=== PATIENT | male | born 1950 | race Caucasian/White ===

== ENCOUNTER 2019-04-04 01:34 | Observation (INO) | payer MEDICARE ==
[2019-04-04] MEDS ORDERED: ONDANSETRON 4 MG/2 ML VIAL ONE (01:55)
[2019-04-04] MEDS ORDERED: MORPHINE 4 MG/ML SYR ONE (01:56)
[2019-04-04 02:22] LABS: Protime INR 1.7
[2019-04-04 02:29] LABS: Absolute Lymphocytes (CBC) 1.5 K/uL (0.7-4.9); Basophils % 0.9 % (0-1.3); Hematocrit 37.9 % (39.6-49.0); Lymphocytes % 28.9 % (15.3-44.8); MPV 8.7 fL (7.6-11.3); RBC Red Blood Cell Count 4.06 M/uL (4.33-5.43)
[2019-04-04 02:35] LABS: Bicarbonate 28 mmol/L (21-32); Glucose Level 133 mg/dL (74-106); Potassium 4.3 mmol/L (3.5-5.1); Sodium Level 139 mmol/L (136-145)
[2019-04-04 02:36] LABS: ALT/SGPT 23 U/L (12-78); AST/SGOT 14 U/L (15-37); Albumin 3.9 g/dL (3.4-5.0); Alkaline Phosphatase 40 U/L (45-117); BUN Blood Urea Nitrogen 34 mg/dL (7-18); Bilirubin Direct 0.3 mg/dL (0-0.2); Bilirubin Total 0.9 mg/dL (0.2-1.0); Magnesium 1.7 mg/dL (1.8-2.4); NT PRO-BNP 72 pg/mL (<125); Protein, Total 7.2 g/dL (6.4-8.2); Troponin (Emerg Dept Use Only) < 0.02 ng/mL (0.0-0.045)
--- NOTE | 2019-04-04 03:22 | EDPHYS ---
Physician Documentation [facility] Name: Erik Colbert Jr Age: 69 yrs Sex: Male : 1950 Arrival Date: 04/04/2019 Time: 01:35 Bed 6 Private MD: ED Physician Paxton Romo HPI: 04/04 02:06 This 69 yrs old Male presents to ER via Ambulatory with complaints of pm1 Breathing Difficulty, Back Pain. 02:06 The patient or guardian reports chest pain that is located primarily in the anterior pm1 aspect of left upper chest. Onset: 2 day(s) ago. 02:06 The pain radiates to left neck, left back. Associated signs and symptoms: Pertinent pm1 positives: shortness of breath, Pertinent negatives: abdominal pain, cough, diaphoresis, dizziness, headache, nausea, vomiting. The chest pain is described as sharp. Duration: The patient or guardian reports a single episode, that is still ongoing. Modifying factors: The symptoms are alleviated by nothing. the symptoms are aggravated by nothing. Severity of pain: in the emergency department the pain is actually worse. Patient reports onset of left scapular pain two days ago and believed it was related to muscle sprain from lifting heavy object on to shelf. Today reports left sided chest pain with radiation to left side of neck and shortness of breath. Historical: - Allergies: 02:10 No Known Allergies; ea - Home Meds: 02:10 metformin 1,000 mg oral tab 1 tab 2 times per day [Active]; Xarelto 20 mg oral tab 1 ea tab once daily for Pulmonary Thromboembolism [Active]; tamsulosin 0.4 mg oral cp24 1 cap once daily [Active]; atorvastatin 20 mg oral tab 1 tab once daily [Active]; atorvastatin 20 mg oral tab 1 tab once daily [Active]; finasteride 5 mg oral tab 1 tab once daily [Active]; losartan 25 mg oral tab .5 tab once daily [Active]; - PMHx: 02:10 Diabetes - NIDDM; Kidney stones; PE; ea - Immunization history:: Adult Immunizations up to date. - Social history:: Smoking status: Patient/guardian denies using tobacco. - Ebola Screening: : No symptoms or risks identified at this time. ROS: 02:16 Constitutional: Negative for fever, chills, and weight loss, Eyes: Negative for injury, pm1 pain, redness, and discharge, ENT: Negative for injury, pain, and discharge, Neck: Negative for injury, pain, and swelling. 02:16 Abdomen/GI: Negative for abdominal pain, nausea, vomiting, diarrhea, and constipation. 02:16 MS/Extremity: Negative for injury and deformity, Skin: Negative for injury, rash, and discoloration, Neuro: Negative for headache, weakness, numbness, tingling, and seizure. 02:16 Cardiovascular: Positive for chest pain, Negative for edema, palpitations. 02:16 Respiratory: Positive for shortness of breath, Negative for cough, wheezing. 02:16 Back: Positive for of the left scapular area, pain. Exam: 02:16 Constitutional: This is a well developed, well nourished patient who is awake, alert, pm1 and in no acute distress. Head/Face: Normocephalic, atraumatic. Neck: Trachea midline, no thyromegaly or masses palpated, and no cervical lymphadenopathy. Supple, full range of motion without nuchal rigidity, or vertebral point tenderness. No Meningismus. Chest/axilla: Normal chest wall appearance and motion. Nontender with no deformity. No lesions are appreciated. Cardiovascular: Regular rate and rhythm with a normal S1 and S2. No gallops, murmurs, or rubs. No pulse deficits. Respiratory: Lungs have equal breath sounds bilaterally, clear to auscultation and percussion. No rales, rhonchi or wheezes noted. No increased work of breathing, no retractions or nasal flaring. Abdomen/GI: Soft, non-tender, with normal bowel sounds. No distension or tympany. No guarding or rebound. No evidence of tenderness throughout. Back: No spinal tenderness. No costovertebral tenderness. Full range of motion. Skin: Warm, dry with normal turgor. Normal color with no rashes, no lesions, and no evidence of cellulitis. MS/ Extremity: Pulses equal, no cyanosis. Neurovascular intact. Full, normal range of motion. 02:16 Neuro: Orientation: is normal, Motor: is normal, moves all fours. Vital Signs: 01:48 BP 143 / 76; Pulse 73; Resp 18; Temp 98.3; Pulse Ox 99% ; Weight 108.86 kg; Height 6 ea ft. 1 in. (185.42 cm); Pain 6/10; 02:55 BP 140 / 69; Pulse 69; Resp 18; Pulse Ox 100% ; ea 04:00 BP 126 / 70; Pulse 70; Resp 18; Temp 97.8; Pulse Ox 100% ; ea 01:48 Body Mass Index 31.66 (108.86 kg, 185.42 cm) ea MDM: 01:42 Patient medically screened. pm1 02:37 Data reviewed: vital signs. Data interpreted: Pulse oximetry: on room air is 99 %. pm1 Interpretation: normal. 03:20 Differential diagnosis: Anxiety Reaction Pneumothorax Pulmonary Embolism Unstable ma2 Angina. Counseling: I had a detailed discussion with the patient and/or guardian regarding: the historical points, exam findings, and any diagnostic results supporting the discharge/admit diagnosis, the presence of at least one elevated blood pressure reading (>120/80) during this emergency department visit, the need for further work-up and treatment in the hospital. Response to treatment: the patient's symptoms have mildly improved after treatment. ED course: patient is already on xarelto, for pe . 04/04 01:48 Order name: Basic Metabolic Panel; Complete Time: 02:37 pm1 04/04 01:48 Order name: CBC with Diff; Complete Time: 03:00 pm1 04/04 01:48 Order name: LFT's; Complete Time: 02:37 pm1 04/04 01:48 Order name: Magnesium; Complete Time: 02:37 pm1 04/04 01:48 Order name: NT PRO-BNP; Complete Time: 02:37 pm1 04/04 01:48 Order name: PT-INR; Complete Time: 02:31 pm1 04/04 01:48 Order name: Troponin (emerg Dept Use Only); Complete Time: 02:37 pm1 04/04 03:30 Order name: Basic Metabolic Panel EDMS 04/04 03:30 Order name: Basic Metabolic Panel EDMS 04/04 03:30 Order name: CBC with Automated Diff EDMS 04/04 03:30 Order name: CBC with Automated Diff EDMS 04/04 03:30 Order name: Troponin I EDMS 04/04 03:30 Order name: Troponin I EDMS 04/04 03:30 Order name: Troponin I EDMS 04/04 01:48 Order name: XRAY Chest (1 view) pm1 04/04 01:48 Order name: EKG; Complete Time: 01:51 pm04/04 01:48 Order name: Cardiac monitoring; Complete Time: 02:11 pm04/04 01:48 Order name: EKG - Nurse/Tech; Complete Time: 02:11 pm04/04 01:48 Order name: IV Saline Lock; Complete Time: 02:11 pm1 04/04 01:48 Order name: Labs collected and sent; Complete Time: 02:11 pm04/04 01:48 Order name: O2 Per Protocol; Complete Time: 02:11 pm04/04 01:48 Order name: O2 Sat Monitoring; Complete Time: 02:11 pm1 04/04 03:30 Order name: Consistent Carb (ADA) [address] [facility] EDMS 04/04 03:30 Order name: EKG Electrocardiogram EDMS 04/04 03:30 Order name: EKG Electrocardiogram EDMS 04/04 03:30 Order name: EKG Electrocardiogram EDMS 04/04 03:30 Order name: EKG Electrocardiogram EDMS Administered Medications: 03:13 Drug: morphine 4 mg Route: IVP; Site: right antecubital; ea 03:30 Follow up: Response: No adverse reaction ea 03:14 Drug: Zofran 4 mg Route: IVP; Site: right antecubital; ea 03:30 Follow up: Response: No adverse reaction ea 03:55 Drug: Aspirin Chewable Tablet 324 mg Route: PO; ea 04:27 Follow up: Response: No adverse reaction ea Disposition: 03:20 Co-signature as Attending Physician, Paxton Romo MD. ma2 Disposition: 04/04/19 03:22 Hospitalization ordered by Steve Singletary for Observation. Preliminary diagnosis is Chest pain, unspecified. - Bed requested for Telemetry/MedSurg (observation). - Status is Observation. ea - Condition is Stable. - Problem is new. - Symptoms are unchanged. UTI on Admission? No Signatures: Dispatcher [employer] EDKatheryn Liu, RN RN cg Todd Dan, CLINIC OFFICE ASSISTANT CLINIC OFFICE ASSISTANT pm1 Zayda Connors RN RN ea Alzahri, Mohammad, MD MD ma2 Corrections: (The following items were deleted from the chart) 04:14 03:22 Hospitalization Ordered by Steve Singletary MD for Observation. Preliminary diagnosis cg is Chest pain, unspecified. Bed requested for Telemetry/MedSurg (observation). Status is Observation. Condition is Stable. Problem is new. Symptoms are unchanged. UTI on Admission? No. ma2 04:38 04:14 04/04/2019 03:22 Hospitalization Ordered by Steve Singletary MD for Observation. ea Preliminary diagnosis is Chest pain, unspecified. Bed requested for Telemetry/MedSurg (observation). Status is Observation. Condition is Stable. Problem is new. Symptoms are unchanged. UTI on Admission? No. cg
--- NOTE | 2019-04-04 03:22 | ER ---
Nurse's Notes [facility] Name: Erik Coblert Jr Age: 69 yrs Sex: Male : 1950 Arrival Date: 04/04/2019 Time: 01:35 Bed 6 Private MD: Diagnosis: Chest pain, unspecified Presentation: 04/04 01:48 Presenting complaint: Patient states: Reports left shoulder pain that radiates to left ea neck that started 2 days ago. Pt rates pain 6/10 reports SOB. Transition of care: patient was not received from another setting of care. Onset of symptoms was April 04, 2019. Risk Assessment: Do you want to hurt yourself or someone else? Patient reports no desire to harm self or others. Initial Sepsis Screen: Does the patient meet any 2 criteria? No. Patient's initial sepsis screen is negative. Does the patient have a suspected source of infection? No. Patient's initial sepsis screen is negative. Care prior to arrival: None. 01:48 Method Of Arrival: Ambulatory ea 01:48 Acuity: ABIMAEL 3 ea Triage Assessment: 02:06 General: Appears uncomfortable, Behavior is cooperative, appropriate for age. Pain: ea Complains of pain in left scapular area Pain radiates to left side of neck. Neuro: Level of Consciousness is awake, alert, obeys commands, Oriented to person, place, time, situation. Cardiovascular: Patient's skin is warm and dry. Respiratory: Reports shortness of breath Onset: The symptoms/episode began/occurred yesterday, the patient has mild shortness of breath. Derm: Skin is pink, warm \\T\\ dry. Musculoskeletal: Circulation, motion, and sensation intact. Historical: - Allergies: 02:10 No Known Allergies; ea - Home Meds: 02:10 metformin 1,000 mg oral tab 1 tab 2 times per day [Active]; Xarelto 20 mg oral tab 1 ea tab once daily for Pulmonary Thromboembolism [Active]; tamsulosin 0.4 mg oral cp24 1 cap once daily [Active]; atorvastatin 20 mg oral tab 1 tab once daily [Active]; atorvastatin 20 mg oral tab 1 tab once daily [Active]; finasteride 5 mg oral tab 1 tab once daily [Active]; losartan 25 mg oral tab .5 tab once daily [Active]; - PMHx: 02:10 Diabetes - NIDDM; Kidney stones; PE; ea - Immunization history:: Adult Immunizations up to date. - Social history:: Smoking status: Patient/guardian denies using tobacco. - Ebola Screening: : No symptoms or risks identified at this time. Screenin:04 Abuse screen: Denies threats or abuse. Nutritional screening: No deficits noted. ea Tuberculosis screening: No symptoms or risk factors identified. Fall Risk None identified. Assessment: 02:07 Reassessment: see triage assessment. Respiratory: Airway is patent Respiratory effort ea is even, unlabored, Breath sounds are clear. 02:10 Reassessment: Patient and/or family updated on plan of care and expected duration. Pain ea level reassessed. Patient is alert, oriented x 3, equal unlabored respirations, skin warm/dry/pink. Pt offered pain medication, pt refused pain medication at this time. States " it's not hurting that bad right now". 03:00 Reassessment: Patient and/or family updated on plan of care and expected duration. Pain ea level reassessed. Patient is alert, oriented x 3, equal unlabored respirations, skin warm/dry/pink. 04:34 Reassessment: Patient and/or family updated on plan of care and expected duration. Pain ea level reassessed. Patient is alert, oriented x 3, equal unlabored respirations, skin warm/dry/pink. Report called to Marcela HESS. Pt admitted to fourth floor, left ED via wheelchair, per tech, pt tolerating well. No s/s of pain or discomfort noted at this time. Vital Signs: 01:48 BP 143 / 76; Pulse 73; Resp 18; Temp 98.3; Pulse Ox 99% ; Weight 108.86 kg; Height 6 ea ft. 1 in. (185.42 cm); Pain 6/10; 02:55 BP 140 / 69; Pulse 69; Resp 18; Pulse Ox 100% ; ea 04:00 BP 126 / 70; Pulse 70; Resp 18; Temp 97.8; Pulse Ox 100% ; ea 01:48 Body Mass Index 31.66 (108.86 kg, 185.42 cm) ea ED Course: 01:35 Patient arrived in ED. jg7 01:39 Todd Dan NP is PHCP. pm1 01:39 Paxton Romo MD is Attending Physician. pm1 01:48 Patient has correct armband on for positive identification. Placed in gown. Bed in low ea position. Call light in reach. Side rails up X 1. 01:48 Arm band placed on right wrist. Patient placed in an exam room, on a stretcher, on ea conveyor monitor, on pulse oximetry. 01:59 Zayda Connors RN is Primary Nurse. ea 02:03 Inserted saline lock: 20 gauge in right antecubital area, using aseptic technique. oe Blood collected. 02:04 Triage completed. ea 02:06 XRAY Chest (1 view) In Process Unspecified. EDMS 03:21 Steve Singletary MD is Hospitalizing Provider. ma2 04:29 Patient admitted, IV remains in place. ea 04:34 No provider procedures requiring assistance completed. ea Administered Medications: 03:13 Drug: morphine 4 mg Route: IVP; Site: right antecubital; ea 03:30 Follow up: Response: No adverse reaction ea 03:14 Drug: Zofran 4 mg Route: IVP; Site: right antecubital; ea 03:30 Follow up: Response: No adverse reaction ea 03:55 Drug: Aspirin Chewable Tablet 324 mg Route: PO; ea 04:27 Follow up: Response: No adverse reaction ea Outcome: 03:22 Decision to Hospitalize by Provider. ma2 04:00 Instructed on the need for admit, Demonstrated understanding of instructions. ea 04:29 Admitted to Med/surg accompanied by tech, via wheelchair, room 423, with chart, Report ea called to Marcela HESS 04:29 Condition: stable 04:38 Patient left the ED. ea Signatures: Dispatcher [employer] EDMA Todd Dan, [employer] SPECIAL EDUCATION SUPERVISOR pm1 Fab Torres Elena, DESHAWN RN Paxton Grady MD MD ma2 Felicita Galvan jg7 Corrections: (The following items were deleted from the chart) 03:02 03:01 BP 140 / 69; Pulse 69bpm; Resp 18bpm; Pulse Ox 100%; ea ea
[2019-04-04] MEDS ORDERED: ASPIRIN 81 MG CHEWABLE TABLET ONE (03:49)
[2019-04-04 04:47] VITALS: O2SAT 100
[2019-04-04 06:18] VITALS: BMI 31.6
[2019-04-04] MEDS: MORPHINE 4 MG/ML SYR IV PRN ×2 (07:24→13:07)
[2019-04-04 07:45] LABS: Urine Appearance CLEAR; Urine Bilirubin NEGATIVE (NEG); Urine Blood NEGATIVE (NEG); Urine Color YELLOW; Urine Glucose NEGATIVE (NEG); Urine Protein NEGATIVE (NEG); Urine Specific Gravity 1.015 (1.005-1.030); Urine Urobilinogen 0.2 mg/dL (0.2-1.0); Urine pH 5.5 (5.0-7.0)
[2019-04-04 07:56] LABS: Urine Bacteria <20 /HPF (NONE SEEN); Urine Culture Reflex Order NOT NEEDED; Urine RBC <5 /HPF (NONE SEEN)
[2019-04-04] MEDS ORDERED: INFLUENZA VACCINE (for 3y+) 0.5 ML DOSE IMVAC ONE (08:00)
--- NOTE | 2019-04-04 08:07 | RAD REPORT ---
EXAM DESCRIPTION: Dariana Single View04/04/2019 2:07 am CLINICAL HISTORY: Chest pain COMPARISON: 2012 FINDINGS: The lungs appear clear of acute infiltrate. The heart is normal size IMPRESSION: No acute abnormalities displayed
[2019-04-04] MEDS ORDERED: FINASTERIDE 5 MG TAB PO SCH (09:00)
[2019-04-04] MEDS ORDERED: METFORMIN ER 500 MG TAB PO SCH (09:00)
[2019-04-04] MEDS ORDERED: RIVAROXABAN 20 MG TABLET PO SCH (09:00)
[2019-04-04] MEDS ORDERED: ASPIRIN EC 81 MG TAB PO SCH (09:00)
[2019-04-04] MEDS ORDERED: LOSARTAN POTASSIUM PO SCH (09:00)
[2019-04-04] MEDS ORDERED: TAMSULOSIN 0.4 MG SR CAP PO SCH (09:00)
[2019-04-04] MEDS ORDERED: ATORVASTATIN 20 MG TAB PO SCH (09:00)
--- NOTE | 2019-04-04 09:05 | RAD REPORT ---
EXAM DESCRIPTION: RAD - C Spine W Obliques - 04/04/2019 8:50 am CLINICAL HISTORY: Neck pain FINDINGS: No fracture. Mild anterior subluxation C5 on C6 The oblique views demonstrate mild bony encroachment upon the right neural foramina C4-5 and left alina ral foramina C3-4 and C5-6 and C6-7 Bones appear osteoporotic
--- NOTE | 2019-04-04 09:12 | RAD REPORT ---
EXAM DESCRIPTION: RAD - Thoracic Spine Ap/Lat - 04/04/2019 8:52 am CLINICAL HISTORY: Back pain FINDINGS: No fracture or dislocation Mild kyphosis Osteoporosis Moderate spondylosis involves the thoracic spine mainly consisting of anterolateral osteophytes. Diff use idiopathic skeletal hyperostosis is present.
--- NOTE | 2019-04-04 10:23 | EKG ---
Test Date: 2019-04-04 Test Time: 01:58:21 Position Classification Manager: HANNAH MEASUREMENT RESULTS: Intervals: Rate: 76 ID: [id number] QRSD: 150 QT: 400 QTc: 450 [place]: P: 5 ID: [id number] QRS: -47 T: 26 INTERPRETIVE STATEMENTS: Normal sinus rhythm Right bundle branch block Left axis Abnormal ECG Compared to ECG 07/03/2016 17:01:47 Sinus tachycardia no longer present Myocardial infarct finding no longer present Electronically Signed On 04-04-19 10:23:10 AIR HOSE COUPLER by Jose Mejia
--- NOTE | 2019-04-04 10:23 | EKG ---
Test Date: 2019-04-04 Test Time: 06:44:31 Theatrical Rigger: LUIS A MEASUREMENT RESULTS: Intervals: Rate: 65 MN: 230 QRSD: 154 QT: 418 QTc: 434 [place]: P: 61 MN: 230 QRS: -25 T: 34 INTERPRETIVE STATEMENTS: Sinus rhythm with 1st degree AV block Right bundle branch block Abnormal ECG Compared to ECG 04/04/2019 01:58:21 First degree AV block now present Electronically Signed On 04-04-19 10:22:41 AQUACULTURE DIRECTOR by Jose Mejia
--- NOTE | 2019-04-04 13:58 | CON ---
Chief Complaint: Left scapular pain. 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 While he was doing that he was lifting a 40 pound box, noted the onset of pain. Later, katherin teixeira felt that at the back of his neck, so he came to the hospital. I am asked to see if this is perhap s a sign of CAD. The patient is very active. [place]. He does not brannon ve any chest pain with that. He does not have any chest pain now. He never had myocardial infarctio n or stroke. Remotely, he has had a pulmonary embolus and remains on anticoagulation chronically. Katherin teixeira also has dyslipidemia, diabetes, hypertension and prostate hypertrophy. He is a nonsmoker. Alcohol use minimal. No illegal drugs. Physical Examination: General: 6 feet 1, 240 pounds. Body mass index 31. HEENT: Unremarkable. Lungs: Clear. Heart: Exam is within normal limits. No carotid bruit. Extremities: Trace edema. Distal pulses palpable. EKG normal. Troponins normal. I think the patient did have a stress test done. I would actually re commend he be discharged and do a stress test as an outpatient. I do not think he needs hospitalizat ion anymore. All his enzymes are normal. EKGs normal. The pain he has is not very reminiscent of u nstable heart disease at all. I would recommend discharge. ZACHARY/HARINDER Voice ID: [id number] Report ID: [id number]
[2019-04-04 16:11] VITALS: BP 119/61; TEMP 98.1
--- NOTE | 2019-04-05 01:59 | SS ---
Date of Discharge: 04/04/2019 Chief Complaint: Chest pain. History Of Present Illness: This is a 69-year-old pleasant male patient who was doing fine until all of a sudden last night he started to have some pain in the left scapular region. It radiated to his left posterolateral neck area and he came into emergency room with these complaints. After he was e valuated, he was admitted to the hospital. When I saw him this morning, he was pain-free. Denies an y rash. No fever or chills. No fall or injury. No nausea, vomiting. No shortness of breath or gail phoresis. Allergies: NO KNOWN ALLERGIES. Medications: Medication list reviewed. Review of Systems: Cardiovascular: As mentioned above. All other systems reviewed are negative. Social History: Negative for smoking and alcohol use. Family History: Significant for COPD. Past Surgical History: Negative. Past Medical History: Erectile dysfunction, elevated PSA, vitamin B12 deficiency, anemia, type 2 gail betes mellitus, hyperlipidemia, hypertension, pulmonary embolism for which he is on chronic anticoagu lation therapy. Physical Examination: Vital Signs: Temperature 97.4, pulse 61, respiratory rate 16, blood pressure 126/67, oxygen saturati on was 96%, height 6 feet 1 inch, weight 240 pounds. General: Awake, alert, oriented, not in distress. HEENT: Head atraumatic, normocephalic. Conjunctivae nonerythematous. Sclerae white. Mouth, no thr ush or edema noted. Ears/Nose, no mass, lesion, discharge noted. Neck: Supple. No JVD, lymph nodes, bruit, thyromegaly noted. Lungs: Bilateral good equal air entry. Clear to auscultation. No rhonchi. No rales. Heart: Normal heart sounds, no murmur or gallop. Abdomen: Soft, bowel sounds normal. No guarding, rigidity, tenderness, mass, hepatosplenomegaly, dis tention, or bruit noted. Extremities: No leg edema. No calf tenderness. Skin: No rash, ulcer, cellulitis. Lymphatics: No lymph node enlargement in neck, supraclavicular, infraclavicular region. Neuro: No focal neurological deficit. Chest: Unremarkable. External Genitalia: Deferred. Rectal: Deferred. Laboratory Data: White count 5, hemoglobin 13.2, platelets 132. INR 1.70. Sodium 139, potassium 4. 3, chloride 104, bicarb 28, BUN 34, creatinine 1.50, glucose 133, magnesium 1.7. Liver function test s unremarkable. Troponin less than 0.02 x3. Urinalysis, negative. Chest x-ray, no acute cardiopulm onary changes. EKG, no acute ST-T changes. Hospital Course: After I saw patient, Cardiology consultation was requested. The patient's pain was atypical in nature. His home medications were continued. This afternoon, nurse contacted and infor med me that the patient's had noted some rash in the anterior chest wall area, which could be du e to shingles and senior php web developer has released him to go home. Medically, he is stable for discharge. So, what I did is, I asked the patient to come over to my office upon discharge from the hospital as this morning when I saw him, he did not have any rash over anterior, posterior, or lateral chest wall area at all. After his discharge from the hospital he came over to office with his and I exami gladys him and confirmed that he has a vesicular rash over left anterior chest wall. There is no rash o louise the scapular region, but his skin has changed color and it is slightly pinkish in color, but once again, there is no rash in the scapular region. I believe that his pain that he presented with is l ikely due to underlying herpes zoster and details were discussed with him. We will start him on anti viral medication famciclovir 500 mg 2 times a day in view of his chronic kidney disease stage 3. Start him on gabapen tin and prednisone 20 mg daily for 5 days. I will see him at office in 1 week. Details and plan of treatment discussed with the patient and the patient's . Final Diagnoses: 1.Chest pain, atypical. 2.Herpes zoster. 3.Chronic kidney disease, stage 3. 4.Type 2 diabetes mellitus. 5.History of pulmonary embolism. 6.Chronic anticoagulation therapy. 7.Mixed hyperlipidemia. 8.Hypertension. ENOC/MODL Voice ID: [id number] Report ID: [id number]
[2019-04-05] MEDS ORDERED: LOSARTAN POTASSIUM 50 MG TABLET PO SCH (09:00)
== END 2019-04-04 16:40 | disposition home or self-care (01) ==
LOC: ER 01:34 → ERHOLD 03:37 → 4TH 04:29
PROVIDERS: ADMIT Internal Medicine; ATTEND Internal Medicine
DX: R07.89 Other chest pain (principal); B02.9 Zoster without complications; I12.9 Hypertensive chronic kidney disease with stage 1 through stage 4 chronic kidney disease, or unspecified chronic kidney disease; E11.22 Type 2 diabetes mellitus with diabetic chronic kidney disease; N18.3 Chronic kidney disease, stage 3 (moderate); E78.2 Mixed hyperlipidemia; N52.9 Male erectile dysfunction, unspecified; Z79.01 Long term (current) use of anticoagulants; Z86.711 Personal history of pulmonary embolism
CPT/HCPCS: 93005 ×2; 85025; 81001; 80048; 36415; 83735; 85610; 80076; 84484 ×3; 83880; 71045; 72050; 72070; 96375; 96374; 99285; J2405; G0378 ×2; Q2035

== ENCOUNTER 2021-09-25 10:32 | Inpatient (IN) | payer OTHER ==
[2021-09-25 12:00] LABS: Urine Blood Trace-lysed (Negative); Urine Glucose Negative (Negative); Urine Protein 1+ (Negative); Urine pH 5.5 (5.0-7.0)
[2021-09-25 12:02] LABS: Absolute Lymphocytes (CBC) 1.5 K/uL (0.7-4.9); Hematocrit 33.6 % (39.6-49.0); Lymphocytes % 19.7 % (15.3-44.8); MCV 92.3 fL (80-100); MPV 7.1 fL (7.6-11.3); RBC Red Blood Cell Count 3.64 M/uL (4.33-5.43)
[2021-09-25 12:10] LABS: Protime INR 2.06
[2021-09-25 12:23] LABS: Albumin 3.2 g/dL (3.4-5.0); Bilirubin Total 1.9 mg/dL (0.2-1.0); Protein, Total 7.3 g/dL (6.4-8.2)
[2021-09-25 12:28] LABS: Urine Bacteria 20-50 /HPF (NONE SEEN); Urine RBC <5 /HPF (NONE SEEN)
[2021-09-25 12:29] LABS: Urine Mucus 1+ /HPF (NONE SEEN)
--- NOTE | 2021-09-25 12:40 | RAD REPORT ---
EXAM DESCRIPTION: CT - Stone Protocol - 09/25/2021 12:15 pm CLINICAL HISTORY: Flank pain. HX of stone COMPARISON: Stone Protocol dated 12/23/2018 TECHNIQUE: Axial images were obtained without oral or IV contrast. Lack of contrast limits solid org an and vascular assessment. The geyul-la-ndns spans the entirety of the system partially obscuring uppermost abdomen and lung bases. Coronal reformatted images were obtained and reviewed. All CT scans are performed using dose optimization technique as appropriate and may include automated exposure control or mA/KV adjustment according to patient size. FINDINGS: The lower lung theodore are clear. Imaged portions of the liver and spleen show no suspicious findings on non-contrast imaging. There is slight fat stranding surrounding the pancreatic head.Adrenal glands are normal. No pathologic lympha denopathy in the abdomen or pelvis. No urinary tract stones or obstructive uropathy. No bowel obstruction, free air, free fluid or abscess. Appendix is upper limit of normal measuring 8 mm.Small fat containing umbilical hernia. Small bilateral fat containing inguinal hernias. Hardware is in place in the lumbar spine with postsurgical changes. IMPRESSION: No urinary tract stones or obstructive uropathy. Trace fat stranding surrounding the pancreatic head region, suggest correlation with amylase/lipase t o evaluate for pancreatitis. Fat containing umbilical.
[2021-09-25] MEDS ORDERED: CEFTRIAXONE 1000 MG/VIAL ONE (12:44)
[2021-09-25] MEDS ORDERED: NA CHLORIDE 0.9% 1,000 ML ONE (12:57)
[2021-09-25] MEDS ORDERED: ACETAMINOPHEN 500 MG TAB ONE (12:57)
--- NOTE | 2021-09-25 13:28 | RAD REPORT ---
EXAM DESCRIPTION: RAD - Chest Single View - 09/25/2021 1:20 pm CLINICAL HISTORY: SOB Chest pain. COMPARISON: Chest Single View dated 04/04/2019; Abdomen 1 View (KUB) dated 09/10/2016; Abdomen 1 View (KUB) dated 08/05/2016; CHEST SINGLE VIEW dated 03/10/2013 FINDINGS: Portable technique limits examination quality. Interstitial prominence is seen which is nonspecific and may represent interstitial pneumonia or inte rstitial pulmonary edema. The heart is normal in size. No displaced fractures.
--- NOTE | 2021-09-25 15:00 | RAD REPORT ---
EXAM DESCRIPTION: CT - Chest For Pe Angio - 09/25/2021 2:46 pm CLINICAL HISTORY: Chest pain. hx of PE COMPARISON: CTANGIO CHEST FOR PE dated 03/10/2013 TECHNIQUE: CT angiogram of the pulmonary arteries was performed with MIP. All CT scans are performed using dose optimization technique as appropriate and may include automated exposure control or mA/KV adjustment according to patient size. FINDINGS: No evidence of pulmonary thromboembolism. No acute aortic finding demonstrated. Mild linear atelectasis is seen in the left lung base. The lungs are otherwise clear. No significant pericardial or pleural fluid. No concerning bony finding. IMPRESSION: No evidence of pulmonary thromboembolism. No significant acute lung findings.
[2021-09-25] MEDS ORDERED: AZITHROMYCIN 500 MG INJ IVPB ONE (17:45)
[2021-09-25] MEDS ORDERED: NA CHLORIDE 0.9% 250 ML ONE (17:45)
--- NOTE | 2021-09-25 18:01 | ER ---
Nurse's Notes [facility] Name: Erik Colbert Jr Age: 71 yrs Sex: Male : 1950 Arrival Date: 09/25/2021 Time: 10:34 Bed 24 Private MD: Steve Singletary Diagnosis: UTI/ Urinary tract infection, site not specified;Other pneumonia, unspecified organism Presentation: 09/25 10:44 Chief complaint: Patient states: Decreased urinary output and fever that began ss yesterday. Denies pain. Coronavirus screen: Client denies travel out of the [place] in the last 14 days. Ebola Screen: Patient denies exposure to infectious person. Patient denies travel to an Ebola-affected area in the 21 days before illness onset. Initial Sepsis Screen: Does the patient meet any 2 criteria? No. Patient's initial sepsis screen is negative. Does the patient have a suspected source of infection? No. Patient's initial sepsis screen is negative. Risk Assessment: Do you want to hurt yourself or someone else? Patient reports no desire to harm self or others. Onset of symptoms was September 24, 2021. 10:44 Method Of Arrival: Wheelchair ss 10:44 Acuity: ABIMAEL 3 ss Historical: - Allergies: 10:46 No Known Allergies; ss - PMHx: 10:46 Diabetes - NIDDM; Kidney stones; PE; ss - Immunization history:: Client reports receiving the 2nd dose of the Covid vaccine. - Social history:: Smoking status: Patient denies any tobacco usage or history of. Screenin:02 Abuse screen: Denies threats or abuse. Denies injuries from another. Nutritional ld1 screening: No deficits noted. Tuberculosis screening: No symptoms or risk factors identified. Fall Risk None identified. Assessment: 12:58 General: Appears in no apparent distress. uncomfortable, Behavior is cooperative, ld1 appropriate for age, anxious. Pain: Denies pain. Neuro: Level of Consciousness is awake, alert, obeys commands, Oriented to person, place, time, situation, Cardiovascular: Capillary refill < 3 seconds Patient's skin is warm and dry. Rhythm is. 13:02 Cardiovascular: Rhythm is sinus rhythm. Respiratory: Reports Airway is patent ld1 Respiratory effort is even, labored, Respiratory pattern is. GI: Abdomen is round non-distended. : No signs and/or symptoms were reported regarding the genitourinary system. EENT: No signs and/or symptoms were reported regarding the EENT system. Derm: No signs and/or symptoms reported regarding the dermatologic system. Musculoskeletal: No signs and/or symptoms reported regarding the musculoskeletal system. 18:29 Reassessment: Attempted to call patient report. Nurse unavailable at this time. Vital Signs: 10:44 BP 128 / 64; Pulse 90; Resp 16; Temp 98.9(TE); Pulse Ox 99% on R/A; Weight 117.93 kg; ss Height 6 ft. 1 in. (185.42 cm); Pain 0/10; 12:39 Temp 102.3(O); ss 12:50 Pulse Ox 87% on R/A; ld1 12:57 BP 130 / 66; Pulse 89; Resp 24; Pulse Ox 97% on 3 lpm NC; ld1 13:53 BP 124 / 65; Pulse 100; Resp 18; Pulse Ox 100% on R/A; ld1 15:11 BP 101 / 62; Pulse 86; Resp 18; Pulse Ox 98% on 3 lpm NC; ld1 18:26 Temp 99.0; ss 19:34 BP 115 / 72; Pulse 68; Resp 14; Pulse Ox 100% on 2 lpm NC; lp1 10:44 Body Mass Index 34.30 (117.93 kg, 185.42 cm) ED Course: 10:34 Patient arrived in ED. rg4 10:34 Steve Singletary MD is Private Physician. rg4 10:46 Triage completed. ss 10:46 Arm band placed on right wrist. 10:47 [facility] jh7 10:47 Tyrell Malcolm MD is Attending Physician. jh7 11:53 Inserted saline lock: 20 gauge in right antecubital area, using aseptic technique. zm Blood collected. 11:53 Lactate Sent. zm 11:54 Protime (+inr) Sent. zm 11:54 Ptt, Activated Sent. zm 11:54 CBC with Diff Sent. zm 11:54 CMP Sent. zm 11:55 Urine Microscopic Only Sent. zm 12:17 CT Stone Protocol In Process Unspecified. EDMS 12:[address], DESHAWN is Primary Nurse. ld1 12:44 Blood Culture Adult (2) Sent. ld1 13:02 Patient has correct armband on for positive identification. Placed in gown. Bed in low ld1 position. Call light in reach. Side rails up X2. Client placed on continuous cardiac and pulse oximetry monitoring. NIBP monitoring applied. cardiac monitor technician on. Pulse ox on. NIBP on. Door closed. Noise minimized. Warm blanket given. 13:02 No provider procedures requiring assistance completed. ld1 13:10 D-Dimer Sent. ld1 13:22 XRAY Chest (1 view) In Process Unspecified. EDMS 14:48 CT Chest For PE Angio In Process Unspecified. EDMS 18:00 Steve Singletary MD is Hospitalizing Provider. jh7 19:33 Patient admitted, IV remains in place. lp1 Administered Medications: 12:44 Drug: Rocephin (cefTRIAXone) 1 grams Route: IV; Rate: calculated rate; Site: right ld1 antecubital; 12:55 Drug: NS 0.9% 1000 ml Route: IV; Rate: 1 bolus; Site: right antecubital; ld1 12:56 Drug: Tylenol 1000 mg Route: PO; ld1 17:45 Drug: AZITHromycin 500 mg Route: IVPB; Infused Over: 1 hrs; Site: right antecubital; ss Medication: 13:02 VIS not applicable for this client. ld1 Outcome: 18:01 Decision to Hospitalize by Provider. [facility] 19:34 Admitted to Med/surg room 221, with oxygen, with chart, Report called to DESHAWN Johnson lp1 19:34 Condition: stable 19:34 Instructed on the need for admit. 19:36 Patient left the ED. lp1 Signatures: Dispatcher [employer] EDMS Vidhya Rosen RN RN ss Devi Gordillo, RN RN lp1 Mary Lou Torre rg4 Bonnie Lane RN RN ld1 Peyton Bryant Jennifer, FNP FNP [facility]
--- NOTE | 2021-09-25 18:01 | EDPHYS ---
Physician Documentation [facility] Name: Erik Colbert Jr Age: 71 yrs Sex: Male : 1950 Arrival Date: 09/25/2021 Time: 10:34 Bed 24 Private MD: Steve Singletary ED Physician Tyrell Malcolm HPI: 09/25 11:15 This 71 yrs old Male presents to ER via Wheelchair with complaints of Urinary Problem. jh7 11:15 Onset: The symptoms/episode began/occurred acutely. Associated signs and symptoms: jh7 Pertinent positives: Decreased urine output, fatigue. The patient was seen in Dr. Singletary's office this morning who advised him to go to the ER. The patient states that he normally fills up an entire urinal every night, but is only filled it up one quarter full. Reports that his urine is dark. Also complains of fatigue. Denies any pain.. Historical: - Allergies: 10:46 No Known Allergies; ss - PMHx: 10:46 Diabetes - NIDDM; Kidney stones; PE; ss - Immunization history:: Client reports receiving the 2nd dose of the Covid vaccine. - Social history:: Smoking status: Patient denies any tobacco usage or history of. ROS: 11:15 Neck: Negative for injury, pain, and swelling, Cardiovascular: Negative for chest pain, jh7 palpitations, and edema, Respiratory: Negative for shortness of breath, cough, wheezing, and pleuritic chest pain, Abdomen/GI: Negative for abdominal pain, nausea, vomiting, diarrhea, and constipation, Back: Negative for injury and pain, Skin: Negative for injury, rash, and discoloration, Neuro: Negative for headache, weakness, numbness, tingling, and seizure. 11:15 Constitutional: Positive for fatigue, fever, Negative for body aches. 11:15 : Positive for Decreased urine output, change in urine color, Negative for urinary symptoms, urinary frequency, flank pain. 11:15 All other systems are negative. Exam: 11:15 Constitutional: This is a well developed, well nourished patient who is awake, alert, jh7 and in no acute distress. Neck: Trachea midline, no thyromegaly or masses palpated, and no cervical lymphadenopathy. Supple, full range of motion without nuchal rigidity, or vertebral point tenderness. No Meningismus. Cardiovascular: Regular rate and rhythm with a normal S1 and S2. No gallops, murmurs, or rubs. Normal PMI, no JVD. No pulse deficits. Respiratory: Lungs have equal breath sounds bilaterally, clear to auscultation and percussion. No rales, rhonchi or wheezes noted. No increased work of breathing, no retractions or nasal flaring. Abdomen/GI: Soft, non-tender, with normal bowel sounds. No distension or tympany. No guarding or rebound. No evidence of tenderness throughout. Skin: Warm, dry with normal turgor. Normal color with no rashes, no lesions, and no evidence of cellulitis. Neuro: Awake and alert, GCS 15, oriented to person, place, time, and situation. Motor strength 5/5 in all extremities. Sensory grossly intact. Normal gait. 11:15 : Exam negative for CVA tenderness, bladder tenderness, bladder distension, Urine is dona-colored. Vital Signs: 10:44 BP 128 / 64; Pulse 90; Resp 16; Temp 98.9(TE); Pulse Ox 99% on R/A; Weight 117.93 kg; ss Height 6 ft. 1 in. (185.42 cm); Pain 0/10; 12:39 Temp 102.3(O); ss 12:50 Pulse Ox 87% on R/A; ld1 12:57 BP 130 / 66; Pulse 89; Resp 24; Pulse Ox 97% on 3 lpm NC; ld1 13:53 BP 124 / 65; Pulse 100; Resp 18; Pulse Ox 100% on R/A; ld1 15:11 BP 101 / 62; Pulse 86; Resp 18; Pulse Ox 98% on 3 lpm NC; ld1 18:26 Temp 99.0; ss 19:34 BP 115 / 72; Pulse 68; Resp 14; Pulse Ox 100% on 2 lpm NC; lp1 10:44 Body Mass Index 34.30 (117.93 kg, 185.42 cm) MDM: 12:38 Patient medically screened. [facility] 17:45 Differential diagnosis: viral Infection, bacterial infection, pneumonia UTI. Data [facility] reviewed: vital signs, nurses notes, lab test result(s), radiologic studies, CT scan, plain films. Data interpreted: Pulse oximetry: on 2L(s) per nasal canula, is 98 %. Interpretation: normal. Counseling: I had a detailed discussion with the patient and/or guardian regarding: the historical points, exam findings, and any diagnostic results supporting the discharge/admit diagnosis, the need for further work-up and treatment in the hospital. Response to treatment: the patient's symptoms have markedly improved after treatment. ED course: Reviewed lab and imaging findings with Dr. Singletary. Informed him that he was covered for pneumonia and UTI. Agreed to admit the patient at inpatient status. Dr. Singletary advised to continue the Rocephin and Zithromax and to order maintenance fluids (NS) at 100 cc an hour. Also instructed to put the patient on a diabetic diet and to add a mild sliding scale. Requested to add on an amylase and lipase as well.. 09/25 11:01 Order name: CBC with Diff; Complete Time: 12:30 [facility] 09/25 11:01 Order name: CMP; Complete Time: 12:30 [facility] 09/25 11:01 Order name: Urine Microscopic Only; Complete Time: 12:30 [facility] 09/25 11:01 Order name: Lactate; Complete Time: 12:30 [facility] 09/25 11:01 Order name: Protime (+inr); Complete Time: 12:30 [facility] 09/25 11:01 Order name: Ptt, Activated; Complete Time: 12:30 [facility] 09/25 11:31 Order name: Blood Culture Adult (2) [facility] 09/25 12:01 Order name: Urine Dipstick-Ancillary; Complete Time: 12:03 [facility] 09/25 12:31 Order name: Urine Culture [facility] 09/25 13:01 Order name: D-Dimer; Complete Time: 14:10 ld1 09/25 14:13 Order name: COVID-19 SARS RT PCR (Document "Date of Onset" if Symptomatic); Complete ld1 Time: 17:00 09/25 17:59 Order name: Amylase, Serum [facility] 09/25 17:59 Order name: Lipase [facility] 09/25 11:01 Order name: IV Saline Lock; Complete Time: 11:54 [facility] 09/25 11:01 Order name: Labs collected and sent; Complete Time: 11:54 [facility] 09/25 11:01 Order name: Urine Dipstick-Ancillary (obtain specimen); Complete Time: 11:55 [facility] 09/25 11:01 Order name: IV Saline Lock - Large Bore; Complete Time: 11:53 [facility] 09/25 11:01 Order name: O2 Per Protocol; Complete Time: 12:36 [facility] 09/25 11:01 Order name: O2 Sat Monitoring; Complete Time: 12:36 [facility] 09/25 11:45 Order name: CT Stone Protocol; Complete Time: 12:41 [facility] 09/25 13:00 Order name: XRAY Chest (1 view); Complete Time: 13:33 [facility] 09/25 14:13 Order name: CT Chest For PE Angio; Complete Time: 15:11 [facility] 09/25 15:55 Order name: Diet Heart Healthy; Complete Time: 15:55 09/25 18:24 Order name: 60g Consistent Carbohydrate (ADA ) EDMS Administered Medications: 12:44 Drug: Rocephin (cefTRIAXone) 1 grams Route: IV; Rate: calculated rate; Site: right ld1 antecubital; 12:55 Drug: NS 0.9% 1000 ml Route: IV; Rate: 1 bolus; Site: right antecubital; ld1 12:56 Drug: Tylenol 1000 mg Route: PO; ld1 17:45 Drug: AZITHromycin 500 mg Route: IVPB; Infused Over: 1 hrs; Site: right antecubital; Disposition Summary: 09/25/21 18:01 Hospitalization Ordered Hospitalization Status: Inpatient Admission [facility] Provider: Steve Singletary [facility] Location: Telemetry/MedSurg (Inpatient) [facility] Condition: Stable [facility] Problem: new [facility] Symptoms: have improved [facility] Bed/Room Type: Standard [facility] Room Assignment: [facility](09/25/21 18:27) Diagnosis - UTI/ Urinary tract infection, site not specified [facility] - Other pneumonia, unspecified organism [facility] Forms: - Medication Reconciliation Form [facility] - SBAR form [facility] Signatures: Dispatcher [employer] EDMS Vidhya Rosen RN RN ss Bonnie Lane RN RN ld1 Samantha Harvey, BUNGHOLE BORER BUNGHOLE BORER [facility] Corrections: (The following items were deleted from the chart) 18:27 18:01 [facility] ss
[2021-09-25] MEDS ORDERED: GLUCAGON 1 MG/VIAL IM PRN (18:19)
[2021-09-25] MEDS ORDERED: D10W 250 ML BAG IV PRN (18:30)
[2021-09-25] MEDS: INSULIN -REGULAR HUMAN 50 UNIT/0.5 ML ML SQ SCH (20:50)
[2021-09-25 21:09] LABS: Amylase 58 U/L (25-115); Lipase 430 U/L (73-393)
[2021-09-26] MEDS ORDERED: ACETAMINOPHEN 500 MG TAB ONE (00:15)
[2021-09-26 05:52] LABS: Absolute Lymphocytes (CBC) 1.3 K/uL (0.7-4.9); Lymphocytes % 20.1 % (15.3-44.8); MCV 91.7 fL (80-100); MPV 7.2 fL (7.6-11.3); RBC Red Blood Cell Count 3.05 M/uL (4.33-5.43)
[2021-09-26 06:13] LABS: Albumin 2.5 g/dL (3.4-5.0); Bilirubin Total 1.1 mg/dL (0.2-1.0); Potassium 3.7 mmol/L (3.5-5.1); Protein, Total 6.1 g/dL (6.4-8.2)
--- NOTE | 2021-09-26 06:27 | HP ---
Date of Admission: 09/25/2021 Chief Complaint: Fever, chills, and urinary complaints. History Of Present Illness: Mr. Colbert is a very pleasant 71-year-old white male patient, came into office with his , and reported that as of yesterday he has been having fever with chills. His te mperature went up to 102 degrees Fahrenheit at home associated with chills. He took some Tylenol and temperature came down. He also noted that he is not able to produce much urine and has very small a mount of urine output when he goes to the bathroom. Denies any dysuria, but he reports his urine was very dark in color, as there might be blood in it. Denies any nausea, vomiting. He feels very weak . Denies any abdominal pain or flank pain. He has prior history of kidney stone and he was concerne d about that. With all these complaints, he was evaluated at office and then subsequently advised hi m to come to the emergency room and after he was evaluated in the emergency room, decision was made t o admit him to the hospital. Allergies: NO KNOWN ALLERGIES. Medications: Atorvastatin 20 mg daily, finasteride 5 mg daily, Xarelto 15 mg daily, vitamin B12 1000 mcg daily, tamsulosin 0.4 mg daily, gabapentin 300 mg 3 times a day, glipizide 2.5 mg daily in morni ng with breakfast, losartan 25 mg takes half a tablet by mouth daily, metformin 1000 mg 2 times a day . Review of Systems: Genitourinary: As mentioned above. Constitutional: As mentioned above. All other systems reviewed and negative. 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 Past Surgical History: Ureter stent placement long time ago by Dr. Mao for kidney stone, back chen chris May 19, 2021. Family History: Father , had COPD. Mother , details unknown. Brother has diabetes. Social History: Negative for smoking, use of alcohol very occasional use. Physical Examination: Vital signs: Initial vital signs in the emergency room; temperature 98.9, pulse 90, respiratory rate 16, blood pressure 128/64 with oxygen saturation 99%. While waiting in the emergency room, his temp erature went up to 102.3 degrees Fahrenheit with drop in his oxygen saturation to 87%. His height is 73 inches, weight 261 pounds. General: Patient appears weaker than normal not in any distress. HEENT: Head atraumatic, normocephalic. Conjunctivae nonerythematous. Sclerae white. Mouth, no thr ush or edema noted. Ears/Nose, no mass, lesion, discharge noted. Neck: Supple. No JVD, lymph nodes, bruit, thyromegaly noted. Lungs: Bilateral good equal air entry. Clear to auscultation. No rhonchi. No rales. Heart: Normal heart sounds, no murmur or gallop. Abdomen: Soft, bowel sounds normal. No guarding, rigidity, tenderness, mass, hepatosplenomegaly, dis tention, or bruit noted. Extremities: No leg edema. No calf tenderness. Skin: No rash, ulcer, cellulitis. Lymphatics: No lymph node enlargement in neck, supraclavicular, infraclavicular region. Neuro: No focal neurological deficit. Chest: Unremarkable. External Genitalia: Deferred. Rectal: Deferred. Laboratory Data: COVID-19 test negative. Urinalysis shows trace blood, 20-50 bacteria. Sodium 127, potassium 4, chloride 93, bicarb 26, BUN 15, creatinine 1.28, glucose 175. Liver function tests unr emarkable except total bilirubin 1.9. Amylase 58, lipase 430. White count 7.6, hemoglobin 11.8, shawn telets 134. Chest x-ray shows prominent interstitial lung markings. CAT scan of the chest per PE pr otocol was negative for pulmonary embolism, shows left lung base atelectasis, otherwise no infiltrate . CAT scan of abdomen per kidney stone protocol was negative for kidney stone, which shows some fat stranding around the head of the pancreas. Impression: 1.Urinary tract infection, rule out sepsis. 2.Hyponatremia. 3.Acute respiratory failure with hypoxia. 4.Type 2 diabetes mellitus. 5.Hypertension. 6.Hyperlipidemia. 7.Benign prostatic hypertrophy with lower urinary tract symptoms. 8.History of pulmonary embolism. 9.Chronic anticoagulation therapy. Plan: We will go ahead and admit the patient to hospital for further evaluation and management of th is problem. The patient is appropriate for inpatient and is expected to spend 2 midnights in [facility]. We will continue home medications per order including his anticoagulation therapy. Diabetes will be managed with sliding scale insulin at this time. Empiric antibiotics will be given. Cultures we re done in the emergency room. We will follow up on results and depending on the culture results, we will make a decision about culture specific antibiotics. IV fluid will be given, normal saline at 1 00 cc/hour. We will repeat blood work tomorrow morning. Details and plan of treatment discussed wit h the patient. ENOC/MODL Voice ID: [id number]
[2021-09-26] MEDS ORDERED: PNEUMOCOCCAL VACCINE 0.5 ML IMVAC ONE (07:00)
[2021-09-26] MEDS: INSULIN -REGULAR HUMAN 50 UNIT/0.5 ML ML SQ SCH ×4 (07:30→21:00)
[2021-09-26] MEDS: TAMSULOSIN 0.4 MG SR CAP PO SCH (08:14)
[2021-09-26] MEDS: levoFLOXacin 500 MG TAB PO SCH (08:14)
[2021-09-26] MEDS: GABAPENTIN 300 MG CAP PO SCH ×3 (08:14→20:46)
[2021-09-26] MEDS: CEFTRIAXONE 1,000 MG in NA CHLORIDE 0.9% 50 ML IVPB SCH ×2 (08:14→20:45)
[2021-09-26] MEDS: FINASTERIDE 5 MG TAB PO SCH (08:14)
[2021-09-26] MEDS ORDERED: CEFTRIAXONE 1,000 MG in NA CHLORIDE 0.9% 50 ML IVPB SCH (09:00)
[2021-09-26] MEDS ORDERED: AZITHROMYCIN IV 500 MG in NA CHLORIDE 0.9% 250 ML IVPB SCH (09:00)
[2021-09-26] MEDS: ACETAMINOPHEN 500 MG TAB PO PRN (16:40)
[2021-09-26] MEDS: ATORVASTATIN 20 MG TAB PO SCH (20:46)
[2021-09-26] MEDS: RIVAROXABAN 15 MG TABLET PO SCH (20:46)
[2021-09-26] MEDS: ALPRAZOLAM 0.25 MG TABLET PO SCH (20:46)
--- NOTE | 2021-09-27 00:35 | PN ---
Date of Progress Note: 09/26/2021 Subjective: The patient was seen this morning for followup. He did have temperature spike up to 103 degrees Fahrenheit last night. Denies any complaints. No abdominal pain this morning. No shortnes s of breath. Physical Examination: Vital Signs: Reviewed. HEENT: Unremarkable. Lungs: Clear to auscultation. Heart: Sounds normal. Abdomen: Soft. Bowel sounds normal. No guarding, rigidity, tenderness, or distention. Extremities: No leg edema. Laboratory Data: White count this morning 6.7, hemoglobin 9.9, platelets 108. Sodium 126, potassium 3.7, chloride 95, bicarb 24, BUN 14, creatinine 1, glucose 138. Impression: 1.Urinary tract infection. 2.Rule out sepsis. 3.Hypovolemia. 4.Hyponatremia. 5.Hypertension. 6.Type 2 diabetes mellitus. 7.Anemia. 8.Thrombocytopenia. Plan And Recommendation: . Continue Xarelto. Continue IV fluid. Continue current empiri c antibiotic. Culture result pending this morning. We will continue to follow up on culture results on a day-to-day basis. We will discontinue azithromycin and start him on Levaquin 500 mg by mouth d aily. Continue IV ceftriaxone. Repeat blood work tomorrow morning. Consult Physical Therapy to help ambulate. I will see him in the [facility] for followup. ENOC/MODL Voice ID: [id number] Report ID: [id number]
[2021-09-27] MEDS: ACETAMINOPHEN 500 MG TAB PO PRN ×2 (04:28→10:02)
[2021-09-27 05:08] LABS: Absolute Lymphocytes (CBC) 1.4 K/uL (0.7-4.9); Hematocrit 27.9 % (39.6-49.0); Lymphocytes % 22.2 % (15.3-44.8); MCV 90.7 fL (80-100); MPV 7.6 fL (7.6-11.3); RBC Red Blood Cell Count 3.08 M/uL (4.33-5.43)
[2021-09-27 05:37] LABS: Magnesium 1.5 mg/dL (1.8-2.4); Potassium 3.6 mmol/L (3.5-5.1); Thyroid Stimulating Hormone 1.7 uIU/mL (0.360-3.740)
[2021-09-27] MEDS: INSULIN -REGULAR HUMAN 50 UNIT/0.5 ML ML SQ SCH ×4 (07:30→20:55)
[2021-09-27] MEDS ORDERED: COSYNTROPIN 0.25 MG VIAL IV SCH (08:00)
[2021-09-27] MEDS: GABAPENTIN 300 MG CAP PO SCH ×3 (10:01→20:54)
[2021-09-27] MEDS: CEFTRIAXONE 1,000 MG in NA CHLORIDE 0.9% 50 ML IVPB SCH ×2 (10:01→20:54)
[2021-09-27] MEDS: TAMSULOSIN 0.4 MG SR CAP PO SCH (10:02)
[2021-09-27] MEDS: levoFLOXacin 500 MG TAB PO SCH (10:02)
[2021-09-27] MEDS: FINASTERIDE 5 MG TAB PO SCH (10:03)
--- NOTE | 2021-09-27 12:37 | PN ---
Date of Progress Note: 09/27/2021 Subjective: The patient was seen this morning for followup. No new complaints or problems reported by him. Overall, he feels better compared to when he first came into the hospital. Vital signs revi ewed. The patient still has a temperature spike, but in last 24 hours his maximum temperature was 99 .6 degree Fahrenheit. Physical Examination: HEENT: Unremarkable. Lungs: Clear to auscultation. Heart: Sounds normal. Abdomen: Soft. Bowel sounds normal. No guarding, rigidity, tenderness, distention. Extremities: No leg edema. Labs: Today; white count 6.3, hemoglobin 10.1, platelets 122. Sodium 125, potassium 3.6, chloride 9 3, bicarb 24, BUN 14, creatinine 1.05, glucose 141, magnesium 1.5, TSH 1.7, and triglyceride 102. Bl ood culture and urine culture remain negative. Impression: 1.Urinary tract infection. 2.Hyponatremia. 3.Type 2 diabetes mellitus. 4.Anemia. 5.Thrombocytopenia. 6.Generalized weakness. 7.Debility. Plan: The patient reports that yesterday he did well with physical therapy and now he is ambulating without much difficulty. He was encouraged to ambulate today. We will continue current antibiotics. The patient's sodium level is low. We will go ahead and order a urine osmolality and cortisol stim ulation test which will be done today. We will repeat blood work tomorrow. Possible discharge to go home tomorrow depending on his condition. ENOC/MODL Voice ID: [id number] Report ID: [id number]
[2021-09-27] MEDS: RIVAROXABAN 15 MG TABLET PO SCH (20:54)
[2021-09-27] MEDS: ALPRAZOLAM 0.25 MG TABLET PO SCH (20:54)
[2021-09-27] MEDS: ATORVASTATIN 20 MG TAB PO SCH (20:55)
[2021-09-27 21:02] VITALS: BMI 34.7
[2021-09-28 00:11] VITALS: O2SAT 97
[2021-09-28] MEDS: INSULIN -REGULAR HUMAN 50 UNIT/0.5 ML ML SQ SCH (07:21)
[2021-09-28 07:38] LABS: Magnesium 1.8 mg/dL (1.8-2.4); Potassium 3.7 mmol/L (3.5-5.1)
[2021-09-28 07:57] VITALS: BP 129/68; TEMP 97.7
[2021-09-28] MEDS: GABAPENTIN 300 MG CAP PO SCH (09:00)
[2021-09-28] MEDS: TAMSULOSIN 0.4 MG SR CAP PO SCH (09:00)
[2021-09-28] MEDS ORDERED: MAGNESIUM SULFATE 1 gm IVPB 1 GM/100 ML BAG IV ONE (09:00)
[2021-09-28] MEDS: FINASTERIDE 5 MG TAB PO SCH (09:00)
[2021-09-28] MEDS ORDERED: POTASSIUM CL SA 10 MEQ TAB PO ONE (09:00)
[2021-09-28] MEDS: CEFTRIAXONE 1,000 MG in NA CHLORIDE 0.9% 50 ML IVPB SCH (09:00)
[2021-09-28] MEDS: levoFLOXacin 500 MG TAB PO SCH (09:00)
--- NOTE | 2021-09-28 12:17 | DS ---
Date of Discharge: 09/28/2021 History Of Present Illness: The patient was seen this morning for followup. No new complaints or pr oblems reported by patient. He was sitting at the bedside. was present with him. Denies any n ew complaints. Ambulating well without any trouble. Earlier today, he had some lower abdominal disc omfort. No nausea, no vomiting. No constipation or diarrhea. His appetite is good. Physical Examination: Vital Signs: Reviewed. His last temperature spike was 100 degree Fahrenheit. This was yesterday ar ound 10 a.m. After that, he has remained afebrile. HEENT: Examination unremarkable. Lungs: Clear to auscultation. No wheezing. No rales. Heart: Sounds normal. Abdomen: Soft. Bowel sounds normal. No guarding, rigidity, tenderness, distention. Extremities: No leg edema. Laboratory Data: Upon admission, white count 7.6, hemoglobin 11.8, platelets 134, and yesterday whit e count 6.3, hemoglobin 10.1, platelets 122. Upon admission, sodium 127, potassium 4, chloride 93, b icarb 26, BUN 15, creatinine 1.28, glucose 175, lipase 430, amylase 58. Today, sodium 129, potassium 3.7, chloride 98, bicarb 23, BUN 15, creatinine 0.92, glucose 134. Cortisol stimulation test was no rmal. Chest x-ray showed some prominent lung markings. CAT scan of the chest per PE protocol was ne gative for pulmonary embolism, which showed some left lung base atelectasis, otherwise no infiltrate. CAT scan of abdomen and pelvis per kidney stone protocol was negative for kidney stone, and it show ed some stranding around the pancreas, but clinically, there is no evidence of pancreatitis. COVID-1 9 test negative. Discharge Medications And Instructions: 1.Continue prior home medication. 2.Take levofloxacin 500 mg 1 tablet by mouth daily for 10 days, starting tomorrow. 3.Follow up at my office next week on 10/02/2021 or 10/03/2021 and call office for appointment. Hospital Course: This is a 71-year-old pleasant male patient, came into office with complaints of fe louise, chills, and urinary complaints. Please see dictated H and P for more information. After the sudhir fritz was evaluated at office, he was sent to the emergency room, and further evaluation in the emerg ency room was completed, and the patient was admitted to the hospital. We were concerned about possi bility of sepsis. His urine culture and blood culture both came back negative. Urinalysis had shown trace blood and 20-50 bacteria. The patient had less than normal amount of urine output, and it was darker in color when he first came in, and all those complaints have improved and resolved. His uri ne is back to normal light yellow color and has normal amount of urine output. He never had any dysu jean paul. The patient was started on empiric antibiotic, ceftriaxone, and then subsequently I added oral Levaquin. So far, his cultures are negative, but clinically, we definitely are concerned about urina ry tract infection, and with appropriate treatment, he has improved. Initially, he had temperature s piking up to 103 degree Fahrenheit, and it came down to 102 and then 100 as of yesterday morning and normal temperature today. His sodium level was low which has improved now, and cortisol stimulation test was normal. Triglyceride and TSH both normal. Final Diagnoses: 1.Urinary tract infection. 2.Hyponatremia. 3.Acute respiratory failure with hypoxia, resolved. 4.Type 2 diabetes mellitus. 5.Hypertension. 6.Hyperlipidemia. 7.Benign prostatic hypertrophy with lower urinary tract symptoms. 8.History of pulmonary embolism. 9.Chronic anticoagulation therapy. ENOC/MODL Voice ID: [id number] Report ID: [id number]
== END 2021-09-28 11:51 | disposition home or self-care (01) | DRG 689 ==
LOC: ER 10:32 → ERHOLD 18:16 → 2ND 19:22
PROVIDERS: ADMIT Internal Medicine; ATTEND Internal Medicine
DX: N39.0 Urinary tract infection, site not specified (principal); J96.01 Acute respiratory failure with hypoxia; E87.1 Hypo-osmolality and hyponatremia; J98.11 Atelectasis; E11.9 Type 2 diabetes mellitus without complications; N40.1 Benign prostatic hyperplasia with lower urinary tract symptoms; N52.9 Male erectile dysfunction, unspecified; I10 Essential (primary) hypertension; E78.5 Hyperlipidemia, unspecified; E86.1 Hypovolemia; D64.9 Anemia, unspecified; D69.6 Thrombocytopenia, unspecified; R53.81 Other malaise; Z79.01 Long term (current) use of anticoagulants; Z86.711 Personal history of pulmonary embolism; Z20.822 Contact with and (suspected) exposure to COVID-19
CPT/HCPCS: 36415; 71045; 71275; 74176; 76377; 80048; 80053; 80061; 81003; 81015; 82024; 82150; 82533; 82947; 83605; 83690; 83735; 83935; 84300; 84443; 85025; 85379; 85610; 85730; 87040; 87086; 87088; 96374; 96375; 97161; 99285; J0456; J0834; J1815; J3475; J7030; J7050; Q9967; U0003

== ENCOUNTER 2023-07-16 06:14 | Day surgery (SDC) | payer OTHER ==
[2023-07-03 14:36] LABS: Absolute Lymphocytes (CBC) 1.8 K/uL (0.7-4.9); Absolute Monocytes 0.3 K/uL (0.1-1.3); Absolute Neutrophil 2.6 K/uL (1.8-8.0); Basophils % 0.5 % (0-1.3); Hematocrit 41.2 % (39.6-49.0); Lymphocytes % 38.1 % (15.3-44.8); MCH 32.2 pg (27.0-35.0); MCV 94.9 fL (80-100); Monocytes % 5.5 % (3.3-12.3); Neutrophils % 54.9 % (41.7-73.7); Platelets 134 thou/uL (152-406); RBC Red Blood Cell Count 4.35 M/uL (4.33-5.43); Red Cell Distribution Width 13.7 % (12.1-15.2)
[2023-07-03 14:39] LABS: PT Prothrombin Time 17.5 SECONDS (9.5-12.5); PTT, Activated Partial Thromb 37.8 SECONDS (24.3-36.9); Protime INR 1.61
[2023-07-03 14:45] LABS: Anion Gap 10.2 mEq/L (5.0-15.0); Potassium 4.2 mEq/L (3.5-5.1)
--- NOTE | 2023-07-03 16:42 | RAD REPORT ---
EXAM DESCRIPTION: RAD - Chest Pa And Lat (2 Views) - 07/03/2023 2:35 pm CLINICAL HISTORY: pre op for surgery. Hypertension COMPARISON: Chest Single View dated 09/25/2021; Chest Single View dated 04/04/2019; Abdomen 1 View (KUB ) dated 09/10/2016; Abdomen 1 View (KUB) dated 08/05/2016 TECHNIQUE: PA and lateral views of the chest were obtained. FINDINGS: The lungs are clear. Heart size is normal and central vasculature is within normal limits. No pleural effusion or pneumothorax seen. No acute bony finding noted. IMPRESSION: No acute cardiopulmonary process.
[2023-07-16] MEDS: NA CHLORIDE 0.9% 1,000 ML ONE (06:40)
[2023-07-16] MEDS ORDERED: propofoL 200 MG/20 ML VIAL IV ONE (07:19)
[2023-07-16] MEDS ORDERED: LIDOCAINE 1% MPF 5 ML VIAL ONE (07:19)
[2023-07-16] MEDS ORDERED: MIDAZOLAM HCL 2 MG/2 ML INJ ONE (07:20)
[2023-07-16] MEDS ORDERED: FENTANYL CITR 100 MCG/2 ML ONE (07:20)
[2023-07-16] MEDS: CEFAZOLIN SODIUM 2 GM/VIAL ONE (07:35)
[2023-07-16] MEDS ORDERED: dexAMETHasone 10 MG/ML VIAL ONE (07:44)
[2023-07-16] MEDS ORDERED: ONDANSETRON 4 MG/2 ML VIAL ONE (07:44)
[2023-07-16 08:19] VITALS: O2SAT 100
[2023-07-16] MEDS ORDERED: CODEINE 30MG/APAP 300MG TAB PO PRN (08:32)
[2023-07-16 10:27] VITALS: BP 115/63; TEMP 97.1
--- NOTE | 2023-07-16 17:46 | EKG ---
Test Date: 2023-07-03 Test Time: 14:10:57 Rehab Services Aide: FRANCHESKA MEASUREMENT RESULTS: Intervals: Rate: 61 HI: 222 QRSD: 170 QT: 438 QTc: 440 [place]: P: 0 HI: 222 QRS: -52 T: 33 INTERPRETIVE STATEMENTS: Sinus rhythm with 1st degree AV block Right bundle branch block Left anterior fascicular block Bifascicular block Abnormal ECG Compared to ECG 04/04/2019 06:44:31 Left anterior fascicular block now present Bifascicular block now present Electronically Signed On 07-16-23 16:59:22 CDT by Edgardo Womack
--- NOTE | 2023-07-16 19:10 | OP ---
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 Principal Procedures: 1.Transrectal ultrasound-guided placement of 2 fiducial markers. 2.Transrectal ultrasound-guided placement of SpaceOAR gel. Indication For Procedure: Mr. Colbert is a 73-year-old gentleman, who underwent a biopsy for elevated PSA revealing the presence of Dany 4+4 adenocarcinoma of the prostate with perineural invasion in the region of what appeared to be an extraprostatic mass apically around the urethra measuring about 6 g. He consulted with Radiation Oncology and ultimately elected to proceed with radiation. Placem ent of the SpaceOAR gel and fiducial markers was requested in preparation. Procedure In Detail: The patient was consented in the preoperative holding area before being transfe rred to the operative suite where general anesthesia was induced. He was given Ancef 2 g IV antimicr obial prophylaxis, and pneumo boots were provided for DVT prophylaxis. He was placed in the high lit hotomy position, padded and secured to the table appropriately, and his genitalia were elevated out o f the perineal region using an Ioban drape. The perineum was then prepped with Betadine and draped i n standard fashion after the transrectal ultrasound probe had been placed free hand into his rectum w ith ease. The stepper device was used to hold the ultrasound probe in place targeting the mid zone o f the prostate. I was able to visualize using the stepper device from the perineal region all the wa y to the seminal vesicles at the base of the prostate adequately. I then began by using a fiducial marker targeting the patient's left anterior mid gland region. The ultrasound was used to guide needle placement through the perineal region and avoiding the urethra di rectly into the left brain prostate and successfully was placed in the anterior portion of the mid gla nd on the left. I then switched the ultrasound probe angle to visualize the right brain prostate and also placed a second fiducial marker through the right half of the perineum avoiding the urethra into the anterior mid gland of the prostate on the right. I then turned my attention to preparation for SpaceOAR insertion. Using the SpaceOAR injection needl e attached to a syringe of saline, I angled the ultrasound probe to the midline and visualized the ur ethra and was able to identify the white stripe representing the prerectal fat plane. I was able to navigate the needle under ultrasound guidance via the perineum and over the rectal hump attempting to avoid what did appear to be some apical extraprostatic present there and ultimately get into the fat plane and navigate the needle into the mid zone of the prostate more towards the mid base region. I confirmed in axial section that the needle was indeed exactly in the midline and aspirated to confir m no blood before performing a slight degree of hydrodissection, which did fill directly in the midli ne. As a result, I switched the saline syringe for the SpaceOAR injection components, and then began to slowly inject the SpaceOAR. At this point, despite the prior hydrodissection indicating symmetri c midline separation in the prerectal fat plane, the SpaceOAR gel did seem to fill the midline, but m ostly fall off to the patient's right side without specifically delineating the space on the left wit h the gel. Upon visualization ultrasonographically, it did appear that while the gel did not distrib chitina evenly into the patient's left prerectal fat plane beneath the prostate, space of at least a coup le of cm was indeed created. As a result, I removed the needle and then removed the ultrasound probe . The Betadine was cleansed from his perineal region and a bit of pressure was applied for the sligh t oozing coming from the needle stick sites. I then took the patient out of the lithotomy position, and he was awakened from general anesthesia before being transferred to a stretcher. He was then tra nsferred to a recovery room in good condition. Complications: None apparent. Discharge Disposition: He should follow up with Radiation Oncology to begin simulation for potential planned initiation of radiation initiation. At that time, the radiation oncologist will be able to determine whether adequate symmetric space was indeed generated with the SpaceOAR. Since the patient 's dominant lesion is indeed apical and slightly extraprostatic, I would assume that would be the foc us of the radiation, and consideration may be given to the role for potentially a gel like URO-Jet in stilled during the treatment phases to try to minimize the risk of bulbar urethral stricture as oppos ed to a catheter which potentially might aggravate the situation and increase the risk of stricture. Either way, the patient would be at a higher risk potentially of stricture formation given the inten sity of the radiation likely necessary at the apex. Subsequently, the patient should follow up with me in approximately 6 months' time. SHAYE/HARINDER Voice ID: [id number] Report ID: [id number]
== END 2023-07-16 09:48 | disposition home or self-care (01) ==
LOC: OR 06:14
PROVIDERS: ATTEND Urology
PROC: 0VH43YZ Insertion of Other Device into Prostate and Seminal Vesicles, Percutaneous Approach (ICD-10-PCS; principal; 2023-07-16 07:30)
DX: C61 Malignant neoplasm of prostate (principal)
CPT/HCPCS: 36415; 71046; 80048; 82947; 85025; 85610; 85730; 87086; 87088; 93005; J1100; J2001; J2250; J2405; J2704; J3010; J7030